=== PATIENT | male | born 1940 | race Caucasian/White ===

== ENCOUNTER → 2018-08-15 | Outpatient (CLI) | payer BC | END | disposition home or self-care (01) | LOC: PCVCCLINIC 11:14 | PROVIDERS: ATTEND Internal Medicine | DX: I25.10 Atherosclerotic heart disease of native coronary artery without angina pectoris (principal); I13.0 Hypertensive heart and chronic kidney disease with heart failure and stage 1 through stage 4 chronic kidney disease, or unspecified chronic kidney disease; I50.32 Chronic diastolic (congestive) heart failure; E11.22 Type 2 diabetes mellitus with diabetic chronic kidney disease; N18.3 Chronic kidney disease, stage 3 (moderate); E78.5 Hyperlipidemia, unspecified; I73.9 Peripheral vascular disease, unspecified; I65.23 Occlusion and stenosis of bilateral carotid arteries; M19.90 Unspecified osteoarthritis, unspecified site; Z79.82 Long term (current) use of aspirin; Z87.891 Personal history of nicotine dependence; Z79.899 Other long term (current) drug therapy | CPT/HCPCS: 36415; 80061; 93005; G0463 ==

== ENCOUNTER → 2019-02-13 | Outpatient (CLI) | payer BC ==
--- NOTE | 2019-02-13 09:56 | PCVCIMAG ---
APPROVED REPORT Study performed: 02/13/2019 09:25:58 EXAM: Comprehensive 2D, Doppler, and color-flow Echocardiogram Patient Location: Echo lab Status: routine BSA: 2.23 HR: 66 bpmBP: 130/70 mmHg Rhythm: NSR Other Information Study Quality: Good Risk Factors: Cardiac Risk Factors: HTN, Hyperlipidemia, DM Indications CAD Stent, PVD 2D Dimensions IVSd: 11.60 (7-11mm)LVOT Diam: 21.01 (18-24mm) LVDd: 44.23 mm PWd: 13.54 (7-11mm)Ascending Ao: 30.51 (22-36mm) LVDs: 23.22 (25-40mm) Left Atrium: 36.03 (27-40mm) Aortic Root: 31.87 mm LV Single Plane 4CH: 67.04 % LV Single Plane 2CH: 59.46 % Biplane EF: 62.9 % Volumes Left Atrial Volume (Systole) Single Plane 4CH: 39.45 mLSingle Plane 2CH: 24.64 mL LA ESV Index: 16.00 mL/m2 Aortic Valve AoV Peak Remberto.: 1.66 m/s AO Peak Gr.: 11.08 mmHgLVOT Max P.90 mmHg LVOT Max V: 1.21 m/s DANISHA Vmax: 2.53 cm2 Mitral Valve E/A Ratio: 0.9 MV Decel. Time: 214.88 ms MV E Max Remberto.: 0.68 m/s MV A Remberto.: 0.78 m/s TDI E/Lateral E': 9.71E/Medial E': 11.33 Medial E' Remberto.: 0.06 m/s Lateral E' Remberto.: 0.07 m/s Pulmonary Valve PV Peak Gr.: 2.41 mmHg Pulmonary Vein P Vein S: 0.57 m/sP Vein A: 0.31 m/s P Vein D: 0.50 m/sP Vein A Dur.: 114.2 msec P Vein S/D Ratio: 1.14 Left Ventricle The left ventricle is normal size. There is normal LV segmental wall motion. Borderline concentric left ventricular hypertrophy. Left ventricular systolic function is normal. The left ventricular ejection fraction is within the normal range. LVEF is 55-60%. Mild diastolic dysfunction is present (impaired relaxation pattern). Right Ventricle The right ventricle is normal size. The right ventricular systolic function is normal. Atria The left atrium size is normal. The right atrium size is normal. Aortic Valve Mild aortic leaflet calcification No aortic regurgitation is present. There is no aortic valvular stenosis. Mitral Valve Mild mitral annular calcification and leaflet calcification There is no mitral valve regurgitation noted. No evidence of mitral valve stenosis. Tricuspid Valve The tricuspid valve is normal in structure. There is no tricuspid valve regurgitation noted. Pulmonic Valve The pulmonary valve is normal in structure. There is no pulmonic valvular regurgitation. Great Vessels The aortic root is normal in size. IVC is normal in size and collapses >50% with inspiration. Pericardium There is no pericardial effusion. <Conclusion> Left ventricular systolic function is normal. There is normal LV segmental wall motion. LVEF is 55-60%. Mild diastolic dysfunction Mild aortic leaflet calcification. No aortic regurgitation or stenosis Mild mitral annular calcification and leaflet calcification. No mitral valve regurgitation Pulmonary artery systolic pressure could not be reliably ascertained. There is no pericardial effusion.
== END | disposition home or self-care (01) ==
LOC: PCVCIMAG 09:01
PROVIDERS: ATTEND Internal Medicine
DX: I08.0 Rheumatic disorders of both mitral and aortic valves (principal); I25.10 Atherosclerotic heart disease of native coronary artery without angina pectoris; I11.0 Hypertensive heart disease with heart failure; I50.32 Chronic diastolic (congestive) heart failure; E11.9 Type 2 diabetes mellitus without complications
CPT/HCPCS: 93306